=== PATIENT | female | born 1945 | race Caucasian/White ===

== ENCOUNTER 2019-04-19 19:45 | Observation (INO) | payer OTHER ==
--- OUTSIDE RECORDS SUMMARY | 2019-04-19 19:47 | XMS REPORT ---
:1945 Author Organization eClinicalWorks Care Team Providers Name Role Phone Garcia, Na Provider Role Unavailable Allergies No Known Allergies Problems Problem Type Condition Code Onset Dates Condition Status Problem Type 2 diabetes mellitus with E11.65 Active hyperglycemia Problem Controlled diabetes mellitus E11.9 Active Problem Elevated blood pressure reading R03.0 Active Problem H/O: gout Z87.39 Active Problem Gout, unspecified cause, unspecified M10.9 Active chronicity, unspecified site Problem Chronic kidney disease, stage 3 N18.3 Active Problem Seasonal allergic rhinitis, J30.2 Active unspecified trigger Problem Hyperlipidemia E78.5 Active Problem Psoriasis of scalp L40.9 Active Problem Obese E66.9 Active Problem intermediate current use of insulin Z79.4 Active Problem Benign essential HTN I10 Active Problem Hypertriglyceridemia E78.1 Active Medications No Known Medications Results No Known Results Summary Purpose eClinicalWorks Submission
--- OUTSIDE RECORDS SUMMARY | 2019-04-19 19:47 | XMS REPORT ---
:1945 Author Organization eClinicalWorks Care Team Providers Name Role Phone Garcia, Na Provider Role Unavailable Allergies, Adverse Reactions, Alerts Substance Reaction Event Type N.K.D.A. Info Not Available Non Drug Allergy Problems Problem Type Condition Code Onset Dates Condition Status Assessment Screening for osteoporosis Z13.820 Active Assessment Needs flu shot Z23 Active Assessment Screening for malignant neoplasm of Z12.39 Active breast Assessment Gout, unspecified cause, M10.9 Active unspecified chronicity, unspecified site Assessment [facility]DC current use of insulin Z79.4 Active Assessment Seasonal allergic rhinitis, J30.2 Active unspecified trigger Assessment Psoriasis of scalp L40.9 Active Assessment Need for Z23 Active japtavbxld-qtwhzug-rcpgwiuhy (Tdap) vaccine Assessment Elevated blood uric acid level E79.0 Active Problem [facility]DC current use of insulin Z79.4 Active Assessment Chronic kidney disease, stage 3 N18.3 Active Problem H/O: gout Z87.39 Active Assessment Hyperlipidemia E78.5 Active Problem Gout, unspecified cause, M10.9 Active unspecified chronicity, unspecified site Problem Type 2 diabetes mellitus with E11.65 Active hyperglycemia Problem Chronic kidney disease, stage 3 N18.3 Active Problem Chronic kidney disease, stage 3 N18.3 Active (moderate) 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 Assessment Type 2 diabetes mellitus with E11.65 Active hyperglycemia Assessment Type 2 diabetes mellitus with E11.22 Active diabetic chronic kidney disease Problem Elevated blood uric acid level E79.0 Active Assessment Benign essential HTN I10 Active Problem Psoriasis of scalp L40.9 Active Problem Seasonal allergic rhinitis, J30.2 Active unspecified trigger Problem Type 2 diabetes mellitus with E11.22 Active diabetic chronic kidney disease Problem Adult general medical exam Z00.00 Active Problem Obese E66.9 Active Problem Hypertriglyceridemia E78.1 Active Assessment Adult general medical exam Z00.00 Active Problem Elevated blood pressure reading R03.0 Active Problem Controlled diabetes mellitus E11.9 Active Problem Benign essential HTN I10 Active Problem Hyperlipidemia E78.5 Active Medications Medication Code Code Instructions Start End Status Dosage System Date Date Tradkimberlee [facility] 46569002102 5 MG Orally Active 1 tablet Once a day Lisinopril [facility] 12719770516 40 MG Orally Active 1 EACH ONCE A once a day DAY ORALLY Lipitor [facility] 21374101450 40 Active TAKE ONE TABLET BY MOUTH DAILY Tradkimberlee [facility] 20592892126 5 MG Orally Active 1 tablet Once a day Amlodipine [facility] 85761241881 10 Active TAKE ONE Besylate TABLET BY MOUTH DAILY Tresiba [facility] 79412214321 200 unit/mL Active 130 units sc FlexTouch Subcutaneous daily once a day Victoza [facility] 77661899673 18 MG/3ML Dec 14Apr Active 0.6mg SC once Subcutaneous 2018, daily x 1 2018 week then 1.2mg SC once daily x 1 week, then up to 1.8mg SC once daily Allopurinol [facility] 10862733121 100 MG Orally Active 1 tablet Once a day Lasix [facility] 63216542523 20 MG Orally Active 1 tablet Once a day Glimepiride [facility] 89531059930 4 MG Orally Active 1 tablet with Once a day breakfast or the first main meal of the day Fluocinolone [facility] 24228249947 0.01 % September 13, Active 1 application Acetonide Externally 2019 to affected Twice a day area NovoFine Plus [facility] 48519142308 32G X 4 MM SC Active as directed once daily Losartan [facility] 46654959521 25 MG Active TAKE ONE Potassium TABLET BY MOUTH DAILY Coreg [facility] 35658722226 25 MG Orally Active take one bid tablet Results No Known Results Immunizations Vaccine Administration Date TDAP- Boostrix Mar 17, 2019 FluAD Mar 17, 2019 Summary Purpose eClinicalWorks Submission
--- OUTSIDE RECORDS SUMMARY | 2019-04-19 19:48 | XMS REPORT ---
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 Problem Elevated blood uric acid level E79.0 Active Problem Psoriasis of scalp L40.9 Active Problem Seasonal allergic rhinitis, J30.2 Active unspecified trigger Problem Type 2 diabetes mellitus with E11.22 Active diabetic chronic kidney disease Problem Adult general medical exam Z00.00 Active Problem Obese E66.9 Active Problem Hypertriglyceridemia E78.1 Active Assessment Hyperlipidemia E78.5 Active Problem Elevated blood pressure reading R03.0 Active Problem Controlled diabetes mellitus E11.9 Active Problem Benign essential HTN I10 Active Problem retirement current use of insulin Z79.4 Active Problem Hyperlipidemia E78.5 Active Problem H/O: gout Z87.39 Active Medications Medication Code System Code Instructions Start End Date Status Dosage Date Lipitor [facility] 42771224372 40 Orally Once a Active TAKE ONE day TABLET BY MOUTH DAILY Results No Known Results Summary Purpose eClinicalWorks Submission
[2019-04-19 21:17] LABS: Absolute Lymphocytes (CBC) 1.4 K/uL (0.7-4.9); Basophils % 0.3 % (0-1.3); Hematocrit 44.5 % (36.0-45.0); Lymphocytes % 8.7 % (15.3-44.8); MPV 7.6 fL (7.6-11.3); RBC Red Blood Cell Count 4.89 M/uL (3.86-4.86)
[2019-04-19 21:27] LABS: Albumin 3.1 g/dL (3.4-5.0); Bilirubin Direct 0.2 mg/dL (0-0.2); Bilirubin Total 0.4 mg/dL (0.2-1.0); Potassium 3.9 mmol/L (3.5-5.1); Protein, Total 7.2 g/dL (6.4-8.2)
[2019-04-19] MEDS ORDERED: NA CHLORIDE 0.9% 1,000 ML ONE (22:21)
[2019-04-19 23:01] LABS: Urine Blood NEGATIVE (NEG); Urine Glucose NEGATIVE (NEG); Urine Protein NEGATIVE (NEG)
[2019-04-19 23:05] LABS: Urine Bacteria <20 /HPF (<20); Urine Culture Reflex Order REFLEXED; Urine RBC <5 /HPF (NONE SEEN); Urine Urothelial Cells <5 /HPF (NONE SEEN)
--- NOTE | 2019-04-19 23:14 | EDPHYS ---
Physician Documentation [facility] Name: Brielle Hollins Age: 73 yrs Sex: Female : 1945 Arrival Date: 04/19/2019 Time: 20:00 Bed 27 Private MD: ED Physician Raymundo Humphries HPI: 04/19 22:10 This 73 yrs old Female presents to ER via EMS with complaints of Low Blood wa Sugar. 22:10 The patient or guardian reports hypoglycemia, that was potentially precipitated by wa eating, not eating well. Onset: The symptoms/episode began/occurred just prior to arrival. Associated signs and symptoms: Pertinent positives: lighheaded. Current symptoms: In the emergency department the patient's symptoms have resolved. The patient has not experienced similar symptoms in the past. The patient has not recently seen a physician. states had a recent bout of runny nose, vomiting and diarrhea. no resolved but her appetite was gone during illness. Thinks taking her meds without eating well precipitated this. EMS noted BG 49. given juice in route to ED. denies complaints in ED. Historical: - Allergies: 20:08 No Known Allergies; tr5 - Home Meds: 20:08 carvedilol oral oral [Active]; atorvastatin 40 mg oral tab [Active]; amlodipine 10 mg tr5 tab [Active]; Tradjenta 5 mg oral tab [Active]; allopurinol 100 mg Oral tab [Active]; lisinopril 20 mg Oral tab [Active]; glimepiride 4 mg Oral tab [Active]; aspirin 81 mg Oral chew [Active]; - Immunization history:: Adult Immunizations up to date. - Social history:: Smoking status: Patient/guardian denies using tobacco. - Ebola Screening: : No symptoms or risks identified at this time. - Family history:: not pertinent. - Hospitalizations: : No recent hospitalization is reported. ROS: 22:17 Constitutional: Negative for fever, chills, and weight loss, Eyes: Negative for injury, wa pain, redness, and discharge, ENT: Negative for injury, pain, and discharge, Neck: Negative for injury, pain, and swelling, Cardiovascular: Negative for chest pain, palpitations, and edema, Respiratory: Negative for shortness of breath, cough, wheezing, and pleuritic chest pain, Abdomen/GI: Negative for abdominal pain, nausea, vomiting, diarrhea, and constipation, Back: Negative for injury and pain, : Negative for injury, bleeding, discharge, and swelling, MS/Extremity: Negative for injury and deformity, Skin: Negative for injury, rash, and discoloration, Neuro: Negative for headache, weakness, numbness, tingling, and seizure, Psych: Negative for depression, anxiety, suicide ideation, homicidal ideation, and hallucinations. Exam: 22:17 Constitutional: This is a well developed, well nourished patient who is awake, alert, wa and in no acute distress. Head/Face: Normocephalic, atraumatic. Eyes: Pupils equal round and reactive to light, extra-ocular motions intact. Lids and lashes normal. Conjunctiva and sclera are non-icteric and not injected. Cornea within normal limits. Periorbital areas with no swelling, redness, or edema. ENT: Nares patent. No nasal discharge, no septal abnormalities noted. Tympanic membranes are normal and external auditory canals are clear. Oropharynx with no redness, swelling, or masses, exudates, or evidence of obstruction, uvula midline. Mucous membranes moist. Neck: Trachea midline, no thyromegaly or masses palpated, and no cervical lymphadenopathy. Supple, full range of motion without nuchal rigidity, or vertebral point tenderness. No Meningismus. Chest/axilla: Normal chest wall appearance and motion. Nontender with no deformity. No lesions are appreciated. Cardiovascular: Regular rate and rhythm with a normal S1 and S2. No gallops, murmurs, or rubs. Normal PMI, no JVD. No pulse deficits. Respiratory: Lungs have equal breath sounds bilaterally, clear to auscultation and percussion. No rales, rhonchi or wheezes noted. No increased work of breathing, no retractions or nasal flaring. Abdomen/GI: Soft, non-tender, with normal bowel sounds. No distension or tympany. No guarding or rebound. No evidence of tenderness throughout. Back: No spinal tenderness. No costovertebral tenderness. Full range of motion. Skin: Warm, dry with normal turgor. Normal color with no rashes, no lesions, and no evidence of cellulitis. MS/ Extremity: Pulses equal, no cyanosis. Neurovascular intact. Full, normal range of motion. Neuro: Awake and alert, GCS 15, oriented to person, place, time, and situation. Cranial nerves II-XII grossly intact. Motor strength 5/5 in all extremities. Sensory grossly intact. Cerebellar exam normal. Normal gait. Psych: Awake, alert, with orientation to person, place and time. Behavior, mood, and affect are within normal limits. Vital Signs: 20:08 BP 129 / 58; Pulse 84; Resp 16; Temp 98.6(O); Pulse Ox 100% on R/A; tr5 22:00 BP 110 / 85; Pulse 122; Resp 16; Pulse Ox 99% on R/A; tr5 23:48 BP 120 / 93; Pulse 96; Resp 16; Pulse Ox 100% on R/A; tr5 MDM: 20:02 Patient medically screened. wa 22:17 Differential diagnosis: hypoglycemic episode, feels better now. will give complex wa carbs. however pt on glimeperide. will need admit for obs to prevent re-entry into hypoglycemia. Data reviewed: vital signs, nurses notes. 23:10 Test interpretation: by ED physician or midlevel provider: labs noted. leukocytosis. wa decreased GFR. nml UA. Response to treatment: the patient's symptoms have markedly improved after treatment. ED course: will observe overnight due to sulfonylurea use. . 04/19 20:09 Order name: Glucose, Ancillary Testing; Complete Time: 20:12 EDOH 04/19 20:43 Order name: Basic Metabolic Panel; Complete Time: 21:54 mn 04/19 20:43 Order name: CBC with Diff; Complete Time: 21:54 mn 04/19 20:43 Order name: Hepatic Function; Complete Time: 21:55 mn 04/19 20:43 Order name: Urine Microscopic Only mn 04/19 22:10 Order name: Urine Dipstick--Ancillary (enter results); Complete Time: 23:04 [facility] 04/19 20:43 Order name: IV Saline Lock; Complete Time: 20:58 mn 04/19 20:43 Order name: Labs collected and sent; Complete Time: 20:58 mn 04/19 20:43 Order name: Urine Dipstick-Ancillary (obtain specimen); Complete Time: 22:10 mn 04/19 22:14 Order name: Glucose, Ancillary Testing; Complete Time: 23:04 EDOH 04/19 23:07 Order name: Urine Culture EDMS Administered Medications: 22:34 Drug: NS 0.9% 1000 ml Route: IV; Rate: 1 bolus; Site: right antecubital; tr5 Disposition: 04/19/19 23:13 Hospitalization ordered by Lluvia Junior for Observation. Preliminary diagnosis is acute hypoglycemia secondary to sulfonylurea ingestion. - Bed requested for Telemetry/MedSurg (observation). - Status is Observation. tr5 - Condition is Stable. - Problem is new. - Symptoms have improved. UTI on Admission? No Signatures: Dispatcher [employer] EDMS Heather Mccoy RN RN tl1 Raymundo Humphries MD MD wa Rodriguez, Tommie, RN RN tr5 Corrections: (The following items were deleted from the chart) 23:50 23:13 Hospitalization Ordered by Lluvia Junior MD for Observation. Preliminary diagnosis tl1 is acute hypoglycemia secondary to sulfonylurea ingestion. Bed requested for Telemetry/MedSurg (observation). Status is Observation. Condition is Stable. Problem is new. Symptoms have improved. UTI on Admission? No. mn 04/20 00:57 04/19 23:50 04/19/2019 23:13 Hospitalization Ordered by Lluvia Junior MD for tr5 Observation. Preliminary diagnosis is acute hypoglycemia secondary to sulfonylurea ingestion. Bed requested for Telemetry/MedSurg (observation). Status is Observation. Condition is Stable. Problem is new. Symptoms have improved. UTI on Admission? No. tl1
--- NOTE | 2019-04-19 23:14 | ER ---
Nurse's Notes [facility] Name: Brielle Hollins Age: 73 yrs Sex: Female : 1945 Arrival Date: 04/19/2019 Time: 20:00 Bed 27 Private MD: Diagnosis: acute hypoglycemia secondary to sulfonylurea ingestion Presentation: 04/19 20:01 Presenting complaint: EMS states: Pt took her medications this morning but has not tr5 really eaten today so she started to feel like her blood sugar was low. Upon EMS arrival her BG was 49. They gave her 15 G of oral glucose and she had 2 peanut butter sandwiches Her BG was then 64. Transition of care: patient was not received from another setting of care. Onset of symptoms was April 19, 2019. Risk Assessment: Do you want to hurt yourself or someone else? Patient reports no desire to harm self or others. Initial Sepsis Screen: Does the patient meet any 2 criteria? No. Patient's initial sepsis screen is negative. Does the patient have a suspected source of infection? No. Patient's initial sepsis screen is negative. Care prior to arrival: None. 20:01 Method Of Arrival: EMS: [facility] tr5 20:01 Acuity: MANASA 3 tr5 Historical: - Allergies: 20:08 No Known Allergies; tr5 - Home Meds: 20:08 carvedilol oral oral [Active]; atorvastatin 40 mg oral tab [Active]; amlodipine 10 mg tr5 tab [Active]; Tradjenta 5 mg oral tab [Active]; allopurinol 100 mg Oral tab [Active]; lisinopril 20 mg Oral tab [Active]; glimepiride 4 mg Oral tab [Active]; aspirin 81 mg Oral chew [Active]; - Immunization history:: Adult Immunizations up to date. - Social history:: Smoking status: Patient/guardian denies using tobacco. - Ebola Screening: : No symptoms or risks identified at this time. - Family history:: not pertinent. - Hospitalizations: : No recent hospitalization is reported. Screenin:28 Abuse screen: Denies threats or abuse. Nutritional screening: No deficits noted. tr5 Tuberculosis screening: No symptoms or risk factors identified. Fall Risk None identified. Assessment: 20:28 General: Appears uncomfortable, Behavior is calm, cooperative, appropriate for age. tr5 Pain: Denies pain. Neuro: Level of Consciousness is awake, alert, obeys commands, Oriented to person, place, time, Hand Washer are equal bilaterally Moves all extremities. Cardiovascular: Heart tones present Capillary refill < 3 seconds Pulses are all present. Respiratory: Airway is patent Respiratory effort is even, unlabored, Respiratory pattern is regular, symmetrical. GI: No signs and/or symptoms were reported involving the gastrointestinal system. : No signs and/or symptoms were reported regarding the genitourinary system. EENT: No signs and/or symptoms were reported regarding the EENT system. Derm: No signs and/or symptoms reported regarding the dermatologic system. Musculoskeletal: No signs and/or symptoms reported regarding the musculoskeletal system. Vital Signs: 20:08 BP 129 / 58; Pulse 84; Resp 16; Temp 98.6(O); Pulse Ox 100% on R/A; tr5 22:00 BP 110 / 85; Pulse 122; Resp 16; Pulse Ox 99% on R/A; tr5 23:48 BP 120 / 93; Pulse 96; Resp 16; Pulse Ox 100% on R/A; tr5 ED Course: 20:00 Patient arrived in ED. tr5 20:02 Raymundo Humphries MD is Attending Physician. wa 20:04 Triage completed. tr5 20:08 Arm band placed on Patient placed. tr5 20:21 Jhonatan Rodney RN is Primary Nurse. tr5 20:28 Placed in gown. Bed in low position. Call light in reach. tr5 20:28 Inserted saline lock: 18 gauge in right antecubital area, using aseptic technique. tr5 21:00 Initial lab(s) drawn, by ia, sent to lab. Inserted saline lock: 22 gauge in right lt1 antecubital area, using aseptic technique. 23:12 Lluvia Junior MD is Hospitalizing Provider. wa Administered Medications: 22:34 Drug: NS 0.9% 1000 ml Route: IV; Rate: 1 bolus; Site: right antecubital; tr5 Intake: 16:15 IV: 400ml; Total: 400ml. tr5 Outcome: 23:13 Decision to Hospitalize by Provider. wa 04/20 00:57 Patient left the ED. tr5 Signatures: Raymundo Humphries MD MD wa Tran, Leah lt1 Rashaun, Jhonatan, RN RN tr5
[2019-04-19] MEDS ORDERED: ONDANSETRON 4 MG/2 ML VIAL IV PRN (23:44)
[2019-04-19] MEDS ORDERED: ACETAMINOPHEN 500 MG TAB PO PRN (23:44)
[2019-04-19] MEDS ORDERED: NA CHLORIDE 0.9% 1,000 ML IV SCH (23:45)
--- NOTE | 2019-04-19 23:48 | P.HP ---
Certification for Inpatient Patient admitted to: Observation With expected LOS: <2 Midnights Patient will require the following post-hospital care: None Practitioner: I am a practitioner with admitting privileges, knowledge of patient current condition, hospital course, and medical plan of care. Services: Services provided to patient in accordance with Admission requirements found in Title 42 Section 412.3 of the Code of Federal Regulations Patient History Date of Service: 04/20/19 Reason for admission: HYPOGLYCEMIA, WEAKNESS, UTI History of Present Illness: severino reyez is a 73yoF w/ pmhx of DM, morbid obesity, HTN, gout who presents 2/ 2 hypoglycemia. her DM is treated w/ pills of which she continued to take even after developing nausea, vomiting and diarrhea on wednesday and wednesday. she states that she was unable to check her BGL due to her glucometer being out of batteries. she reports that she continued to take her DM pills although she also had a decrease in PO intake during the 48hr period of the N/V/diarrhea. today she developed diaphoresis and confusion and thus she finally found a glucometer to check her BGL and noted a BGL ~69. Her son called EMS and she presented to the ED for further evaluation. she reports family great grandchild sick w/ flu, and reports that she has had cough w/ phelgm. she denies CP, SOB, dysuria, ur freq, fever or chills, tobacco, etoh, drug use. Allergies No Known Allergies Allergy (Verified 04/20/19 01:00) Home Medications: Allopurinol 100 mg PO DAILY 04/20/19 Amlodipine Besylate [Norvasc] 10 mg PO DAILY 04/20/19 Aspirin [Aspirin EC 81 MG] 81 mg PO DAILY 04/20/19 Atorvastatin Calcium [Lipitor] 40 mg PO BEDTIME 04/20/19 Glimepiride [Amaryl] 4 mg PO DAILY 04/20/19 Insulin Degludec [Tresiba Flextouch U-200] 130 unit SQ DAILY 04/20/19 Linagliptin [Tradjenta] 5 mg PO DAILY 04/20/19 carvediloL [Coreg] 25 mg PO BID 04/20/19 lisinopriL [Prinivil] 40 mg PO DAILY 04/20/19 - Past Medical/Surgical History -: Diabetes - Social History Smoking Status: Never smoker Alcohol use: No CD- Drugs: No Review of Systems General: Weakness Eyes: Unremarkable ENT: Unremarkable Respiratory: Cough, Sputum Cardiovascular: As per HPI, Unremarkable Gastrointestinal: As per HPI, Unremarkable Genitourinary: As per HPI, Unremarkable Musculoskeletal: As per HPI, Unremarkable Integumentary: Unremarkable Neurological: Unremarkable Lymphatics: Unremarkable Physical Examination - Physical Exam General: Alert, In no apparent distress, Oriented x3, Cooperative, Obese HEENT: EOMI Neck: Supple Respiratory: Normal air movement (congestion), Other (congestion) Cardiovascular: No edema, Normal pulses, Regular rate/rhythm, Normal S1 S2 Capillary refill: <2 Seconds Gastrointestinal: Normal bowel sounds, Soft and benign, Non-distended, No rebound, No guarding Musculoskeletal: No clubbing, No swelling, No erythema, No tenderness Integumentary: No rashes Neurological: Cranial nerves 3-12 intact External genitalia: Deferred Rectal: Deferred - Studies Laboratory Data (last 24 hrs) 04/19/19 20:59: WBC 16.2 H, Hgb 14.9, Hct 44.5, Plt Count 346 04/19/19 20:59: Sodium 133 L, Potassium 3.9, BUN 27 H, Creatinine 1.32 H, Glucose 107 H, Total Bilirubin 0.4, AST 17, ALT 27, Alkaline Phosphatase 94 Assessment and Plan - Plan 73yoF admitted w/ # hypoglycemia - due to medication poisoning pt is currently not medication encourage to comply with BGL monitor w/ IVF pt reports improvement pt home PO DM medication on hold, started on SSI monitor uop daily cbc, cmp and obtain a1c/tsh # DM obtain a1c start on low- dose SSI and monitor BGL dm educator consulted #UTI w/ [facility] on admission ( has wbc noted ) started on rocephin Ur cx ordered after UA resulted obtain procal dvt ppx - SCDS dispo - once DM and BGL are stabilized can d/c Discharge Plan: Home Plan to discharge in: 24 Hours - Advance Directives Does patient have a Living Will: No Does patient have a Durable POA for Healthcare: No
[2019-04-20 01:00] VITALS: BMI 42.7
[2019-04-20] MEDS ORDERED: CEFTRIAXONE/SWI 1gm 1 GM/10 ML SYR ONE (01:39)
[2019-04-20] MEDS ORDERED: CEFTRIAXONE 1 GM/NS 50 ML 1 GM/50 ML BAG IV SCH (02:00)
[2019-04-20 05:19] LABS: Protime INR 1.04
[2019-04-20 05:20] LABS: Absolute Lymphocytes (CBC) 2.3 K/uL (0.7-4.9); Basophils % 0.4 % (0-1.3); Hematocrit 39.4 % (36.0-45.0); Lymphocytes % 15.6 % (15.3-44.8); MPV 7.8 fL (7.6-11.3); RBC Red Blood Cell Count 4.35 M/uL (3.86-4.86)
[2019-04-20 05:49] LABS: Albumin 2.7 g/dL (3.4-5.0); Bilirubin Total 0.2 mg/dL (0.2-1.0); Magnesium 2.1 mg/dL (1.8-2.4); Potassium 3.9 mmol/L (3.5-5.1); Protein, Total 6.5 g/dL (6.4-8.2); Thyroid Stimulating Hormone 2.95 uIU/mL (0.360-3.740)
[2019-04-20] MEDS: INSULIN -REGULAR HUMAN 50 UNIT/0.5 ML ML SQ SCH ×2 (06:00→12:00)
[2019-04-20] MEDS ORDERED: INSULIN -REGULAR HUMAN 50 UNIT/0.5 ML ML SQ SCH (07:30)
[2019-04-20 09:37] VITALS: O2SAT 94
--- NOTE | 2019-04-20 11:22 | RAD REPORT ---
EXAM DESCRIPTION: Yuliana Escalera (2 Views)04/20/2019 11:16 am CLINICAL HISTORY: Cough COMPARISON: [id number] FINDINGS: The lungs appear clear of acute infiltrate. The heart is normal size IMPRESSION: No acute abnormalities displayed
--- NOTE | 2019-04-20 14:05 | P.DS ---
Admission Date: 04/19/19 Discharge Date: 04/20/19 Primary Care Provider: Dr. Garcia Disposition: ROUTINE DISCHARGE Discharge Condition: GOOD Reason for Admission: HYPOGLYCEMIA, WEAKNESS, UTI Consultations: none Procedures: CXR: Unremarkable. Medical Problem List: Hypoglycemia likely from overmedication and a recent poor oral intake due to upper respiratory infection likely viral Diabetes mellitus type 2 insulin dependent with hypoglycemia related to above Hypertension Chronic renal disease stage III Hyperlipidemia Brief History of Present Illness: 73-year-old female presented with hypoglycemia. Patient with history of diabetes. Patient takes multiple medications including high dose insulin, glimepiride, Januvia, and Victoza. Patient had reported some upper respiratory symptoms-cough and congestion. She has not been taking good oral intake. She also had not been able to check her blood sugar due to her glucometer be without batteries. EMS was called. She was found to have low blood sugar. Patient found to be hypoglycemic. Patient was observed Hospital Course: Patient presented with hypoglycemia likely from overmedication and decreased oral intake. Patient with diabetes mellitus type 2 insulin dependent. Patient takes multiple medications including Lantus 130 units subcu daily, Victoza daily , Tradjenta 5mg daily, and glimepiride 4 mg daily. Patient was observed. A1c shows 6.0. Patient had poor oral intake prior to admission. Patient now stable at this time. Patient was evaluated for infection. Procalcitonin negative. Chest x-ray unremarkable. Influenza test and strep test negative. Patient likely with upper respiratory infection likely viral. At discharge patient may continue with over the counter expectorant like Mucinex and cough medication as needed. As for her diabetes I will recommend that she decrease Lantus to 110 units subcu daily. She may continue with Victoza and Tradjenta. But I will recommend to discontinue glimepiride due to recent hypoglycemia and chronic renal disease. Recommend to monitor her blood sugars at least twice daily. Recommend to maintain blood sugars less than 140 fasting less than 200 after meals. Patient will need to follow-up with her PCP within 1 week to further address and monitor. Patient with hypertension. Patient will continue with her medications-Norvasc 10 mg daily, carvedilol 25 mg 1 pill twice daily, and lisinopril 40 mg daily. Patient with chronic renal disease stage III. This has remained stable. Recommend to discontinue any nonsteroidal anti-inflammatories. Future medications will need to be renally dosed. Recommend recheck lab tests BMP in 1 -2 weeks. Patient may benefit with Nephrology evaluation as an outpatient to further monitor. Patient with hyperlipidemia. Patient continue with Lipitor 40 mg daily Vital Signs/Physical Exam: Temp Pulse Resp BP Pulse Ox 98.0 F 100 H 20 126/58 L 91 04/20/19 08:00 04/20/19 08:00 04/20/19 08:00 04/20/19 08:00 04/20/19 08:00 General: Alert, In no apparent distress, Cooperative HEENT: Atraumatic Neck: Supple Respiratory: Clear to auscultation bilaterally, Normal air movement Cardiovascular: Normal pulses, Regular rate/rhythm Gastrointestinal: Normal bowel sounds, Soft and benign, Non-distended Musculoskeletal: No erythema, No tenderness, No warmth Integumentary: No tenderness/swelling, No erythema, No warmth, No cyanosis Neurological: Normal speech, Normal strength at 5/5 x4 extr, Normal tone Laboratory Data at Discharge: WBC 14.4 K/uL (4.3-10.9) H 04/20/19 05:00 Hgb 13.3 g/dL (12.0-15.0) 04/20/19 05:00 Hct 39.4 % (36.0-45.0) 04/20/19 05:00 Plt Count 318 K/uL (152-406) 04/20/19 05:00 PT 12.3 SECONDS (9.5-12.5) 04/20/19 05:00 INR 1.04 04/20/19 05:00 Sodium 135 mmol/L (136-145) L 04/20/19 05:00 Potassium 3.9 mmol/L (3.5-5.1) 04/20/19 05:00 BUN 31 mg/dL (7-18) H 04/20/19 05:00 Creatinine 1.41 mg/dL (0.55-1.3) H 04/20/19 05:00 Glucose 135 mg/dL (74-106) H 04/20/19 05:00 Magnesium 2.1 mg/dL (1.8-2.4) 04/20/19 05:00 Total Bilirubin 0.2 mg/dL (0.2-1.0) 04/20/19 05:00 AST 13 U/L (15-37) L 04/20/19 05:00 ALT 22 U/L (12-78) 04/20/19 05:00 Alkaline Phosphatase 91 U/L (45-117) 04/20/19 05:00 Home Medications: Allopurinol 100 mg PO DAILY 04/20/19 Amlodipine Besylate [Norvasc] 10 mg PO DAILY 04/20/19 Aspirin [Aspirin EC 81 MG] 81 mg PO DAILY 04/20/19 Atorvastatin Calcium [Lipitor*] 40 mg PO BEDTIME 04/20/19 Insulin Degludec [Tresiba Flextouch U-200] 130 unit SQ DAILY 04/20/19 Linagliptin [Tradjenta] 5 mg PO DAILY 04/20/19 carvediloL [Coreg*] 25 mg PO BID 04/20/19 lisinopriL [Prinivil*] 40 mg PO DAILY 04/20/19 Patient Discharge Instructions: 1. Recommend follow-up with PCP within 1 week. 2. Patient presented with hypoglycemia likely from overmedication and decreased oral intake. Patient with diabetes mellitus type 2 insulin dependent. Patient takes multiple medications including Lantus 130 units subcu daily, Victoza daily, Tradjenta 5mg daily, and glimepiride 4 mg daily. Patient was observed. A1c shows 6.0. Patient had poor oral intake prior to admission. Patient now stable at this time. Patient was evaluated for infection. Procalcitonin negative. Chest x-ray unremarkable. Influenza test and strep test negative. Patient likely with upper respiratory infection likely viral. At discharge patient may continue with over the counter expectorant like Mucinex and cough medication as needed. As for her diabetes I will recommend that she decrease Lantus to 110 units subcu daily. She may continue with Victoza and Tradjenta. But I will recommend to discontinue glimepiride due to recent hypoglycemia and chronic renal disease. Recommend to monitor her blood sugars at least twice daily. Recommend to maintain blood sugars less than 140 fasting less than 200 after meals. Patient will need to follow-up with her PCP within 1 week to further address and monitor. 3. Patient with hypertension. Patient will continue with her medications-Norvasc 10 mg daily, carvedilol 25 mg 1 pill twice daily, and lisinopril 40 mg daily. 4. Patient with chronic renal disease stage III. This has remained stable. Recommend to discontinue any nonsteroidal anti-inflammatories. Future medications will need to be renally dosed. Recommend recheck lab tests BMP in 1-2 weeks. Patient may benefit with Nephrology evaluation as an outpatient to further monitor. 5. Patient with hyperlipidemia. Patient continue with Lipitor 40 mg daily Diet: ADA Activity: Fall precautions Time spent managing pt's care (in minutes): 55
[2019-04-20 15:07] VITALS: BP 130/60; TEMP 97.6
[2019-04-20] MEDS ORDERED: ATORVASTATIN 40 MG TAB PO SCH (21:00)
[2019-04-20] MEDS ORDERED: carvediloL 25 MG TAB PO SCH (21:00)
[2019-04-21] MEDS ORDERED: CEFTRIAXONE/SWI 1gm 1 GM/10 ML SYR IV SCH (05:00)
[2019-04-21] MEDS ORDERED: allopurinoL 100 MG TAB PO SCH (09:00)
[2019-04-21] MEDS ORDERED: lisinopriL 20 MG TAB PO SCH (09:00)
[2019-04-21] MEDS ORDERED: AMLODIPINE 10 MG TAB PO SCH (09:00)
[2019-04-21] MEDS ORDERED: ASPIRIN EC 81 MG TAB PO SCH (09:00)
== END 2019-04-20 16:12 | disposition home or self-care (01) ==
LOC: ER 19:45 → ERHOLD 23:43 → 2ND 23:57
PROVIDERS: ADMIT Internal Medicine; ATTEND Internal Medicine
DX: E11.649 Type 2 diabetes mellitus with hypoglycemia without coma (principal); N39.0 Urinary tract infection, site not specified; I12.9 Hypertensive chronic kidney disease with stage 1 through stage 4 chronic kidney disease, or unspecified chronic kidney disease; E11.22 Type 2 diabetes mellitus with diabetic chronic kidney disease; N18.3 Chronic kidney disease, stage 3 (moderate); E78.5 Hyperlipidemia, unspecified
CPT/HCPCS: 87040; 87070; 87088; 85025 ×2; 87086; 80048; 36415; 83735; 85610; 82947 ×4; 80076; 87081; 83605; 84443; 87077; 87186; 83036; 80053; 84145; 87804 ×2; 71046; 99284; J0696; J7030 ×2; G0378 ×2; 81003; 81015